=== PATIENT | female | born 1995 | race Hispanic/Latino ===

== ENCOUNTER 2019-11-22 12:19 | Inpatient (IN) | payer BC, MEDICAID ==
[~2019-11-22] VITALS: Ht 165.1 cm; Wt 130.6 kg
[2019-11-22] MEDS ORDERED: LACTATED RINGERS 1000ML 1,000 ML IV ONE (12:58)
[2019-11-22] MEDS ORDERED: DINOPROSTONE 10 MG VAGINAL SUPP VG SCH (14:00)
[2019-11-22] MEDS: LACTATED RINGERS 1000ML 1,000 ML IV PRN (14:08)
[2019-11-22 14:13] LABS: HEMATOCRIT 35.9 % (36-48); MEAN CORPUSCULAR HEMOGLOBIN 25.9 pg (27.0-33.0); MEAN CORPUSCULAR HGB CONC 31.8 g/dL (32.0-36.0); MEAN CORPUSCULAR VOLUME 81.6 fL (79-99); RED BLOOD CELL COUNT(AUTO) 4.4 MIL/uL (4.00-5.50); RED CELL DISTRIBUTION WIDTH 16.1 % (11.0-15.5); WHITE BLOOD COUNT (AUTO) 11.3 K/uL (4.8-10.8)
[2019-11-22] MEDS ORDERED: AMPICILLIN 2GM+NS 100ML 100 ML IV SCH (14:15)
[2019-11-22 14:23] LABS: APPEARANCE,URINE Clear (CLEAR); BILIRUBIN,URINE Negative (NEGATIVE); COLOR,URINE Yellow (YELLOW); GLUCOSE, URINE (UA) Negative (NEGATIVE); KETONES,URINE Negative (NEGATIVE); LEUKOCYTE ESTERASE ,URINE Trace (NEGATIVE); NITRATE,URINE Negative (NEGATIVE); OCCULT BLOOD,URINE Negative (NEGATIVE); PROTEIN,URINE Negative (NEGATIVE); UROBILINOGEN,URINE 0.2 mg/dL (0.2-1.0)
[2019-11-22 14:48] LABS: BACTERIA,URINE Few /HPF (None Seen); RBC,URINE None Seen /HPF (0-1); SQUAMOUS EPITHELIAL CELL,UR 0-2 /HPF (0-2)
[2019-11-22] MEDS: AMPICILLIN 1GM+NS 50ML 50 ML IV SCH ×2 (18:16→22:41)
[2019-11-22] MEDS ORDERED: MORPHINE SULFATE 4 MG/1ML SYG IM SCH (19:00)
[2019-11-23] MEDS: LACTATED RINGERS 1000ML 1,000 ML IV PRN (01:29)
[2019-11-23] MEDS: AMPICILLIN 1GM+NS 50ML 50 ML IV SCH ×6 (02:38→22:26)
[2019-11-23 06:10] LABS: HEPATITIS Bs ANTIGEN SCREEN P Negative (Negative)
[2019-11-23] MEDS: OXYTOCIN-LR 20 UNITS/1000 ML 1,000 ML IV SCH (06:21)
[2019-11-23] MEDS ORDERED: MORPHINE SULFATE 10 MG/ML 1ML VIAL ONE ×2 (22:12→22:58)
[2019-11-23] MEDS ORDERED: MORPHINE SULFATE 10 MG/ML 1ML SYG IM PRN (22:15)
[2019-11-24] MEDS: AMPICILLIN 1GM+NS 50ML 50 ML IV SCH ×6 (02:30→22:18)
[2019-11-24] MEDS: LACTATED RINGERS 1000ML 1,000 ML IV PRN (02:33)
[2019-11-24] MEDS: OXYTOCIN-LR 20 UNITS/1000 ML 1,000 ML IV SCH (03:09)
[2019-11-25] MEDS: AMPICILLIN 1GM+NS 50ML 50 ML IV SCH ×5 (03:01→18:28)
[2019-11-25] MEDS: OXYTOCIN-LR 20 UNITS/1000 ML 1,000 ML IV SCH (04:53)
[2019-11-25] MEDS: LACTATED RINGERS 1000ML 1,000 ML IV PRN (04:53)
[2019-11-25] MEDS ORDERED: MISOPROSTOL 200 MCG TABLET VG PRN ×2 (07:45→15:45)
[2019-11-25] MEDS ORDERED: METHYLERGONOVINE MALEATE 0.2 MG/1 ML ML IM PRN (07:45)
[2019-11-25] MEDS ORDERED: NALOXONE HCL 0.4 MG/1 ML ML IV PRN (10:30)
[2019-11-25] MEDS ORDERED: ROPIVACAINE 0.2% 100ML VIAL 100 ML EP SCH (10:30)
[2019-11-25] MEDS ORDERED: LACTATED RINGERS 500 ML 500 ML IV PRN (10:30)
[2019-11-25] MEDS ORDERED: EPHEDRINE SULFATE 50 MG/ML AMPULE IVP PRN ×2 (10:30→21:45)
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
[2019-11-25] MEDS ORDERED: TRANEXAMIC ACID 1000MG/10ML IV PRN (15:45)
[2019-11-25] MEDS ORDERED: CALDOLOR 800MG+NS 250ML 250 ML IV PRN (19:00)
[2019-11-25] MEDS ORDERED: CEFAZOLIN SODIUM 1 GM VIAL IVP PRN (19:00)
[2019-11-25] MEDS ORDERED: LIDOCAINE PF 2% 5ML ABBOJECT ONE (19:18)
[2019-11-25] MEDS ORDERED: FENTANYL CITRATE PF 50 MCG/1 ML 2ML VIAL ONE (19:21)
[2019-11-25] MEDS ORDERED: DURAMORPH PF1 MG/ML 10ML AMP IV ONE (19:36)
[2019-11-25] MEDS ORDERED: ONDANSETRON HCL 4 MG/2 ML VIAL ONE (19:45)
[2019-11-25] MEDS ORDERED: MIDAZOLAM HCL 1 MG/ML 2ML VIAL ONE (20:01)
[2019-11-25] MEDS ORDERED: LIDOCAINE HCL-MPF 2% 5ML VIAL ONE (20:12)
[2019-11-25] MEDS ORDERED: PHENYLEPHRINE HCL 10 MG/ML 1ML VIAL IV ONE (20:12)
[2019-11-25] MEDS ORDERED: ACETAMINOPHEN-CODEINE 300/30MG TAB PO PRN (20:45)
[2019-11-25] MEDS ORDERED: BISACODYL 10 MG SUPP.RECT RC PRN (20:45)
[2019-11-25] MEDS ORDERED: MEASLES/MUMPS/RUBELLA VACCINE, LIVE 0.5 ML/VIAL SQ SCH (20:45)
[2019-11-25] MEDS ORDERED: DEXTROSE 5 %-0.45 % NACL 1,000 ML IV PRN (20:45)
[2019-11-25] MEDS ORDERED: ACETAMINOPHEN EXTRA STRENGTH 500 MG TABLET PO PRN (20:45)
[2019-11-25] MEDS ORDERED: PROMETHAZINE HCL 25 MG/ML 1ML AMPULE IM PRN (20:45)
[2019-11-25] MEDS ORDERED: SODIUM CHLORIDE 0.9% 10 ML VIAL IVP PRN (20:45)
[2019-11-25] MEDS ORDERED: MEPERIDINE-PF 75 MG/ML SYG IM PRN (20:45)
[2019-11-25] MEDS ORDERED: DIPHENHYDRAMINE HCL 25 MG CAPSULE PO PRN (20:45)
[2019-11-25] MEDS ORDERED: LANOLIN 30GM OINTMENT TP PRN (20:45)
[2019-11-25] MEDS ORDERED: OXYTOCIN-LR 20 UNITS/1000 ML 1,000 ML IV PRN (20:45)
[2019-11-25] MEDS ORDERED: DIPH,PERTUSS(ACELL),TET VAC/PF 0.5 ML VIAL IM SCH (20:45)
[2019-11-25] MEDS ORDERED: HYDROCODONE/ACETAMINOPHEN 5/325 MG TAB PO PRN (20:45)
[2019-11-25 20:47] LABS: HEMATOCRIT 37.8 % (36-48)
[2019-11-25] MEDS ORDERED: LORATADINE/PSEUDOEPHED 5/120 MG 1 EACH TAB.SR.12H PO SCH (21:15)
[2019-11-25] MEDS: CLINDAMYCIN 900 MG/D5% WATER 50 ML IV SCH (21:31)
[2019-11-25] MEDS ORDERED: ONDANSETRON HCL 4 MG/2 ML VIAL IVP PRN (21:45)
[2019-11-25] MEDS ORDERED: NALOXONE HCL 0.4 MG/1 ML ML IVP PRN ×3 (21:45)
[2019-11-25] MEDS ORDERED: DiphenhydrAMINE HCL 50 MG/ML VIAL IVP PRN (21:45)
[2019-11-25] MEDS: GENTAMICIN 80 MG/NS 100 ML PB 100 ML IV SCH (22:03)
[2019-11-26] MEDS: CALDOLOR 800MG+NS 250ML 250 ML IV SCH ×2 (03:39→13:01)
[2019-11-26] MEDS: CLINDAMYCIN 900 MG/D5% WATER 50 ML IV SCH ×3 (04:00→20:48)
[2019-11-26 07:39] LABS: HEMATOCRIT 32.6 % (36-48); MEAN CORPUSCULAR HEMOGLOBIN 25.8 pg (27.0-33.0); MEAN CORPUSCULAR HGB CONC 29.8 g/dL (32.0-36.0); MEAN CORPUSCULAR VOLUME 86.7 fL (79-99); PLATELET COUNT (AUTO) 181 K/uL (130-400); RED BLOOD CELL COUNT(AUTO) 3.76 MIL/uL (4.00-5.50); RED CELL DISTRIBUTION WIDTH 16.6 % (11.0-15.5); WHITE BLOOD COUNT (AUTO) 10.9 K/uL (4.8-10.8)
[2019-11-26 07:45] VITALS: BP 86/64
[2019-11-26] MEDS: SIMETHICONE 80 MG TAB.CHEW PO PRN ×3 (10:07→20:48)
[2019-11-26] MEDS: DOCUSATE SODIUM 100 MG CAP PO SCH ×2 (10:07→20:47)
[2019-11-26] MEDS: LIDOCAINE 5% TOPICAL PATCH TP SCH (10:08)
[2019-11-26] MEDS: LACTATED RINGERS 1000ML 1,000 ML IV PRN (11:30)
[2019-11-26 11:50] VITALS: BP 104/66
[2019-11-26 16:25] VITALS: BP 91/61
[2019-11-26 19:47] VITALS: BP 110/68
[2019-11-26] MEDS ORDERED: PNV71COM3 PO (20:16)
[2019-11-26] MEDS: IBUPROFEN 800 MG TAB PO SCH ×2 (20:45→20:49)
[2019-11-26] MEDS: GENTAMICIN 80 MG/NS 100 ML PB 100 ML IV SCH (21:29)
[2019-11-26] MEDS: AMPICILLIN 1GM+NS 50ML 50 ML IV SCH (22:15)
[2019-11-27 00:47] VITALS: BP 119/69
[2019-11-27] MEDS: AMPICILLIN 1GM+NS 50ML 50 ML IV SCH ×2 (02:15→06:15)
[2019-11-27 04:21] VITALS: BP 116/81
[2019-11-27] MEDS: CLINDAMYCIN 900 MG/D5% WATER 50 ML IV SCH (04:44)
[2019-11-27] MEDS: IBUPROFEN 800 MG TAB PO SCH ×2 (04:45→11:43)
[2019-11-27 07:21] VITALS: BP 102/78
[2019-11-27] MEDS: SIMETHICONE 80 MG TAB.CHEW PO PRN (09:05)
[2019-11-27] MEDS: LIDOCAINE 5% TOPICAL PATCH TP SCH (09:05)
[2019-11-27] MEDS: DOCUSATE SODIUM 100 MG CAP PO SCH (09:05)
[2019-11-27 11:11] VITALS: BP 107/55
--- NOTE | 2019-11-27 11:45 | NUR ---
PATIENT WAS GIVEN DISCHARGE INSTRUCTIONS AND VERBALIZED UNDERSTANDING INSTRUCTIONS GIVEN. SCRIPT FOR HOME PAIN MEDICATION ISSUED AND INSTRUCTED PATIENT ON DOSAGE AND FREQUENCY OF MEDICATIONS. PATIENT DENIES PAIN AND WAS GIVEN SCHEDULED MOTRIN AND METHERGINE DUE.
--- NOTE | 2019-11-27 12:05 | NUR ---
PATIENT WAS TAKEN VIA W/C CARRYING BABY IN ARMS TO FAMILY VEHICLE AND WAS DISCHARGED TO SPOUSE IN STABLE CONDITION. PATIENT IS STABLE AND DENIES PAIN.
== END 2019-11-27 12:05 | disposition home or self-care (01) | DRG 787 ==
LOC: LDH 12:19 → WSH 11-26 09:20
PROC: 3E0234Z Introduction of Serum, Toxoid and Vaccine into Muscle, Percutaneous Approach (ICD-10-PCS; 2019-11-25)
PROC: 3E0134Z Introduction of Serum, Toxoid and Vaccine into Subcutaneous Tissue, Percutaneous Approach (ICD-10-PCS; 2019-11-25)
PROC: 10D00Z1 Extraction of Products of Conception, Low, Open Approach (ICD-10-PCS; principal; 2019-11-25 19:35)
DX: O41.03X0 Oligohydramnios, third trimester, not applicable or unspecified (principal); O72.1 Other immediate postpartum hemorrhage; O99.214 Obesity complicating childbirth; E66.9 Obesity, unspecified; Z37.0 Single live birth; Z3A.40 40 weeks gestation of pregnancy; O62.0 Primary inadequate contractions; Z23 Encounter for immunization
CPT/HCPCS: 36415; 59510; 81001; 85014; 85018; 85027; 86592; 86850; 86900; 86901; 87340; A4344; G0378; J0290; J0690; J1580; J1741; J2001; J2210; J2250; J2270; J2274; J2370; J2405; J2590; J2795; J3010; J3490; J7120